=== PATIENT | female | born 2000 | race Caucasian/White ===

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

== ENCOUNTER 2022-05-31 11:50 | Emergency (ER) | payer OTHER ==
[~2022-05-31] VITALS: Wt 74.8 kg
[2022-05-31] MEDS ORDERED: IBU800 MG PO (13:25)
== END 2022-05-31 13:34 | disposition home or self-care (01) ==
LOC: ED 11:50
DX: M25.532 Pain in left wrist (principal)